=== PATIENT | female | born 1970 | race Caucasian/White ===

== ENCOUNTER 2016-07-11 09:45 | Emergency (ER) | payer BC ==
[2008-09-17 15:14] VITALS: BP 138/64
[~2016-07-11] VITALS: Ht 154.9 cm; Wt 83.6 kg
[~2016-07-11 09:45] MED LIST: ASPIRIN 32325 MG/TAB PO; ASPIRIN 81M81 MG/TA2 PO; ATENOLOL50 MG PO; CLOPIDOGREL; COREG 25MG25 MG/TAB PO; COREG 6.256.25 MG/TA PO; DIOVAN HCT PO; DIOVAN/HCT 12.51 TA1 PO; DIOVAN160 MG PO; GLIMEPIRIDE; IMDUR 60MG60 MG/TAB PO; IMDUR120 MG PO; ISOSORBIDE; JANUMET; KOMBIGLYZE XR 11 TER PO; LEVEMIR SC; LEVEMIR SQ; LEVEMIR100 U/ML SQ; LIPITOR20 MG PO; METFORMIN HCL500 M1 PO; NAPROXEN EC500 MG PO; NITROQUICK0.4 MG SL; NITROSTAT0.4 MG/TAB; NITROSTAT0.4 MG/TAB SL; NORVASC2.5 MG PO; NOVOLOG 100U100 U/M1; PLAVIX 75MG TAB75 MG PO; PRILOSEC 20MG20 MG PO; PROTONIX 40MG T40 MG PO; RANEXA 500MG T500 MG PO; RANEXA PO; RENEXA PO; VYTORIN; XIGDUO PO; ZOCOR 40MG40 MG PO; ZOFRAN 4MG T4 MG/TAB; ZOFRAN 4MG T4 MG/TAB PO; [UNRECOGNIZED DRUG - OTHER]; levemir
[2016-07-11 09:54] VITALS: BP 128/87; TEMP 98.7
[2016-07-11] MEDS ORDERED: VITAMIN D 1001000 IU (10:02)
[2016-07-11 10:45] LABS: INFLUENZA B NEGATIVE
[2016-07-11] MEDS ORDERED: TESSALON PERLE200 MG PO (11:30)
[2016-07-11] MEDS ORDERED: DOXYCYCLINE 10100 MG PO (11:30)
[2016-07-11] MEDS ORDERED: PROAIR HFA0.09 MG/AC IH (11:30)
[2016-07-11 11:40] VITALS: PULSE 85
== END 2016-07-11 11:40 | disposition home or self-care (01) ==
LOC: COL.ER 09:45
PROVIDERS: Nurse Practitioner
DX: J40 Bronchitis, not specified as acute or chronic (principal); F17.210 Nicotine dependence, cigarettes, uncomplicated; E11.9 Type 2 diabetes mellitus without complications; Z79.4 Long term (current) use of insulin; I10 Essential (primary) hypertension; I25.10 Atherosclerotic heart disease of native coronary artery without angina pectoris; Z95.1 Presence of aortocoronary bypass graft; Z95.5 Presence of coronary angioplasty implant and graft

== ENCOUNTER 2016-08-10 19:18 | Emergency (ER) | payer BC ==
[2008-09-17 15:14] VITALS: BP 138/64
[~2016-08-10] VITALS: Ht 154.9 cm; Wt 85.0 kg
[~2016-08-10 19:18] MED LIST changes: +DOXYCYCLINE 10100 MG PO; +PROAIR HFA0.09 MG/AC IH; +TESSALON PERLE200 MG PO; +VITAMIN D 1001000 IU
[2016-08-10 19:22] VITALS: TEMP 97.9
[2016-08-10] MEDS ORDERED: K-DUR 10 MEQ T10 MEQ PO (20:08)
[2016-08-10] MEDS ORDERED: LASIX 40MG TABL40 MG PO (20:08)
[2016-08-10 20:17] VITALS: BP 136/85; PULSE 75
== END 2016-08-10 20:17 | disposition home or self-care (01) ==
LOC: COL.ER 19:18
DX: I97.630 Postprocedural hematoma of a circulatory system organ or structure following a cardiac catheterization (principal); I25.10 Atherosclerotic heart disease of native coronary artery without angina pectoris; I10 Essential (primary) hypertension; Z95.1 Presence of aortocoronary bypass graft; Z95.5 Presence of coronary angioplasty implant and graft; Z87.891 Personal history of nicotine dependence

== ENCOUNTER → 2016-12-02 | Outpatient (CLI) | payer BC ==
[~2016-12-02] MED LIST changes: +K-DUR 10 MEQ T10 MEQ PO; +LASIX 40MG TABL40 MG PO
== END ==
LOC: MC.RAD 07:17
DX: Z12.31 Encounter for screening mammogram for malignant neoplasm of breast (principal)

== ENCOUNTER → 2016-12-22 | Outpatient (CLI) | payer BC | LOC: COL.RAD 12-21 09:45 | DX: K76.89 Other specified diseases of liver (principal) ==

== ENCOUNTER 2017-05-20 13:08 | Emergency (ER) | payer BC ==
[2008-09-17 15:14] VITALS: BP 138/64
[~2017-05-20] VITALS: Ht 154.9 cm; Wt 87.3 kg
[2017-05-20 13:13] VITALS: TEMP 98.7
[2017-05-20 14:01] LABS: ADJUSTED CALCIUM 9.4 mg/dL (8.4-10.2); ALANINE AMINOTRANSFERASE 66 U/L (9-52); ALBUMIN 4.4 gm/dL (3.5-5.0); ALKALINE PHOSPHATASE 91 U/L (50-136); ANION GAP 10 mmol/L (7-16); BASO # 0.1 (0.0-0.2); BASO % 0.7 % (0.0-2.0); BILIRUBIN,TOTAL 0.9 mg/dL (0.0-1.0); BLOOD UREA NITROGEN 21 mg/dL (7-17); CALCIUM 9.7 mg/dL (8.4-10.2); CARBON DIOXIDE 25 mmol/L (22-30); CHLORIDE 105 mmol/L (98-107); CREATININE, serum 0.97 mg/dL (0.52-1.25); EOS # 0.3 (0.0-0.7); EOS % 3.4 % (0-4.0); GLUCOSE 166 mg/dL (74-106); GRAN # 5.4 (1.4-6.5); HEMATOCRIT 49.8 % (37.0-47.0); HEMOGLOBIN 16.6 g/dl (12.5-16.0); LIPASE 141 U/L (23-300); LYMPH % 23.5 % (20.0-51.0); MEAN CELL VOLUME 98 fl (80.0-100.0); MEAN CORPUSCULAR HEMOGLOBIN 33 pg (27.0-31.0); MEAN CORPUSCULAR HGB CONC 33 g/dl (33.0-37.0); MEAN PLATELET VOLUME 11.2 fl (7.4-10.4); MONO # 0.7 (0.1-0.6); MONO % 7.8 % (1.7-9.3); PLATELET COUNT 143 K/mm3 (130-400); POTASSIUM 4.1 mmol/L (3.4-5.0); RED BLOOD COUNT 5.11 M/mm3 (4.10-5.30); SODIUM 140 mmol/L (137-145); TOTAL PROTEIN 7.8 gm/dL (6.4-8.2); WHITE BLOOD COUNT 8.4 K/mm3 (4.8-10.8)
[2017-05-20 14:03] LABS: INR 1.1 (0.8-3.0); PROTHROMBIN TIME 12.1 SECONDS (9.7-12.8)
[2017-05-20 14:05] LABS: PARTIAL THROMBOPLASTIN TIME 35.5 SECONDS (26.0-37.0)
[2017-05-20 14:13] LABS: B-TYPE NATRIURETIC PEPTIDE 360 pg/mL (0-125)
[2017-05-20 14:17] LABS: TROPONIN-I < 0.012 ng/mL (0.000-0.034)
[2017-05-20 16:24] VITALS: BP 136/91; PULSE 66
== END 2017-05-20 16:23 | disposition short-term general hospital (02) ==
LOC: COL.ER 13:08
PROVIDERS: Emergency Medicine
DX: R07.89 Other chest pain (principal); E11.9 Type 2 diabetes mellitus without complications; I10 Essential (primary) hypertension; I25.10 Atherosclerotic heart disease of native coronary artery without angina pectoris; I25.2 Old myocardial infarction; E78.5 Hyperlipidemia, unspecified; Z87.891 Personal history of nicotine dependence; Z95.5 Presence of coronary angioplasty implant and graft; Z79.4 Long term (current) use of insulin; Z79.02 Long term (current) use of antithrombotics/antiplatelets; Z79.82 Long term (current) use of aspirin

== ENCOUNTER → 2017-07-01 | Outpatient (CLI) | payer BC | LOC: COL.RAD 07:39 | DX: K55.1 Chronic vascular disorders of intestine (principal); I74.5 Embolism and thrombosis of iliac artery; K75.81 Nonalcoholic steatohepatitis (NASH); K74.60 Unspecified cirrhosis of liver; I25.10 Atherosclerotic heart disease of native coronary artery without angina pectoris; I73.9 Peripheral vascular disease, unspecified; I70.1 Atherosclerosis of renal artery | CPT/HCPCS: A9585; C8900 ==

== ENCOUNTER 2017-11-11 15:24 | Emergency (ER) | payer BC ==
[2008-09-17 15:14] VITALS: BP 138/64
[~2017-11-11] VITALS: Ht 154.9 cm; Wt 87.7 kg
[2017-11-11 15:26] VITALS: TEMP 97
[2017-11-11 16:05] LABS: BASO # 0.1 (0.0-0.2); BASO % 0.7 % (0.0-2.0); EOS # 0.3 (0.0-0.7); EOS % 2.5 % (0-4.0); GRAN # 7.4 (1.4-6.5); GRAN % 72.6 % (42.2-75.2); HEMATOCRIT 49.4 % (37.0-47.0); HEMOGLOBIN 16.8 g/dl (12.5-16.0); LYMPH # 1.8 (1.2-3.4); LYMPH % 18.1 % (20.0-51.0); MEAN CELL VOLUME 97 fl (80.0-100.0); MEAN CORPUSCULAR HEMOGLOBIN 33 pg (27.0-31.0); MEAN CORPUSCULAR HGB CONC 34 g/dl (33.0-37.0); MEAN PLATELET VOLUME 11.2 fl (7.4-10.4); MONO # 0.6 (0.1-0.6); MONO % 5.6 % (1.7-9.3); PLATELET COUNT 169 K/mm3 (130-400); RED BLOOD COUNT 5.11 M/mm3 (4.10-5.30); REDCELL DISTRIBUTION WIDTH-CV 14.6 % (11.5-14.5)
[2017-11-11 16:15] LABS: ALANINE AMINOTRANSFERASE 45 U/L (9-52); ALKALINE PHOSPHATASE 92 U/L (50-136); ANION GAP 17 mmol/L (7-16); AST,SGOT 56 U/L (15-37); BILIRUBIN,TOTAL 0.8 mg/dL (0.0-1.0); BLOOD UREA NITROGEN 29 mg/dL (7-17); CALCIUM 9.4 mg/dL (8.4-10.2); CARBON DIOXIDE 23 mmol/L (22-30); CHLORIDE 104 mmol/L (98-107); CREATININE, serum 0.89 mg/dL (0.52-1.25); GLUCOSE 226 mg/dL (74-106); MAGNESIUM 1.8 mg/dL (1.6-2.3); PHOSPHOROUS 3.9 mg/dL (2.5-4.5); POTASSIUM 3.8 mmol/L (3.4-5.0); SODIUM 143 mmol/L (137-145); TOTAL PROTEIN 8.1 gm/dL (6.4-8.2)
[2017-11-11 16:28] LABS: TROPONIN-I < 0.012 ng/mL (0.000-0.034)
[2017-11-11] MEDS ORDERED: ANTIVERT 25MG25 MG PO (16:43)
[2017-11-11] MEDS ORDERED: ZOFRAN 4MG T4 MG/TAB PO (16:43)
[2017-11-11] MEDS ORDERED: NORVASC 5MG5 MG/TAB PO (16:44)
[2017-11-11 16:45] LABS: COLLECTION METHOD CLEAN CATCH
[2017-11-11] MEDS ORDERED: JANUVIA 100MG100 MG PO (16:45)
[2017-11-11 16:50] LABS: MUCOUS Present /lpf; PH 5 (5-8); SQUAMOUS EPITHELIAL 0-2 /hpf; URINE APPEARANCE Clear; URINE BACTERIA None Seen /hpf; URINE BILIRUBIN Negative (NEGATIVE); URINE BLOOD 1+ (NEGATIVE); URINE COLOR Yellow; URINE GLUCOSE 3+ (NEGATIVE); URINE KETONE Negative (NEGATIVE); URINE LEUKOCYTE ESTERASE Negative (NEGATIVE); URINE NITRATE Negative (NEGATIVE); URINE PROTEIN(semi-quant) Negative (NEGATIVE); URINE RBC 0-2 /hpf; URINE UROBILINOGEN Negative (NEGATIVE)
[2017-11-11] MEDS ORDERED: VALIUM 2MG T2 MG/TAB PO (19:20)
[2017-11-11] MEDS ORDERED: NITRO-DUR0.1 MG/PAT TD (19:35)
[2017-11-11 20:15] VITALS: BP 142/116; PULSE 75
== END 2017-11-11 20:15 | disposition left against medical advice (07) ==
LOC: COL.ER 15:24
PROVIDERS: Emergency Medicine
DX: R07.9 Chest pain, unspecified (principal); R42 Dizziness and giddiness; I11.0 Hypertensive heart disease with heart failure; I50.9 Heart failure, unspecified; E11.9 Type 2 diabetes mellitus without complications; E78.5 Hyperlipidemia, unspecified; I25.2 Old myocardial infarction; F17.210 Nicotine dependence, cigarettes, uncomplicated; Z95.5 Presence of coronary angioplasty implant and graft; Z95.1 Presence of aortocoronary bypass graft; Z79.82 Long term (current) use of aspirin; Z79.4 Long term (current) use of insulin; Z79.02 Long term (current) use of antithrombotics/antiplatelets

== ENCOUNTER 2017-12-16 10:57 | Emergency (ER) | payer BC ==
[2008-09-17 15:14] VITALS: BP 138/64
[~2017-12-16] VITALS: Ht 157.5 cm; Wt 90.9 kg
[~2017-12-16 10:57] MED LIST changes: +ANTIVERT 25MG25 MG PO; +JANUVIA 100MG100 MG PO; +NITRO-DUR0.1 MG/PAT TD; +NORVASC 5MG5 MG/TAB PO; +VALIUM 2MG T2 MG/TAB PO
[2017-12-16 11:12] VITALS: TEMP 98
[2017-12-16 12:11] LABS: BASO # 0.1 (0.0-0.2); BASO % 0.6 % (0.0-2.0); EOS # 0.2 (0.0-0.7); EOS % 2.4 % (0-4.0); HEMATOCRIT 43.9 % (37.0-47.0); HEMOGLOBIN 14.9 g/dl (12.5-16.0); LYMPH # 1.7 (1.2-3.4); LYMPH % 19.4 % (20.0-51.0); MEAN CELL VOLUME 95 fl (80.0-100.0); MEAN CORPUSCULAR HEMOGLOBIN 32 pg (27.0-31.0); MEAN CORPUSCULAR HGB CONC 34 g/dl (33.0-37.0); MEAN PLATELET VOLUME 10.8 fl (7.4-10.4); MONO # 0.7 (0.1-0.6); MONO % 8.1 % (1.7-9.3); PLATELET COUNT 124 K/mm3 (130-400); RED BLOOD COUNT 4.61 M/mm3 (4.10-5.30); REDCELL DISTRIBUTION WIDTH-CV 14.7 % (11.5-14.5)
[2017-12-16 12:19] LABS: ALANINE AMINOTRANSFERASE 45 U/L (9-52); ALBUMIN 3.7 gm/dL (3.5-5.0); ALKALINE PHOSPHATASE 76 U/L (50-136); ANION GAP 10 mmol/L (7-16); AST,SGOT 56 U/L (15-37); BILIRUBIN,TOTAL 0.8 mg/dL (0.0-1.0); BLOOD UREA NITROGEN 21 mg/dL (7-17); CALCIUM 9.1 mg/dL (8.4-10.2); CARBON DIOXIDE 24 mmol/L (22-30); CHLORIDE 107 mmol/L (98-107); CREATININE, serum 0.75 mg/dL (0.52-1.25); GLUCOSE 93 mg/dL (74-106); POTASSIUM 3.9 mmol/L (3.4-5.0); SODIUM 141 mmol/L (137-145); TOTAL PROTEIN 7.5 gm/dL (6.4-8.2)
[2017-12-16 12:26] LABS: INR 1.1 (0.8-3.0); PROTHROMBIN TIME 12.3 SECONDS (9.7-12.8)
[2017-12-16 12:29] LABS: PARTIAL THROMBOPLASTIN TIME 39.1 SECONDS (26.0-37.0)
[2017-12-16 12:34] LABS: TROPONIN-I < 0.012 ng/mL (0.000-0.034)
[2017-12-16 15:50] VITALS: BP 116/49; PULSE 60
== END 2017-12-16 15:50 | disposition home or self-care (01) ==
LOC: COL.ER 10:57
PROVIDERS: Family Medicine
DX: I35.0 Nonrheumatic aortic (valve) stenosis (principal); I50.9 Heart failure, unspecified; E11.9 Type 2 diabetes mellitus without complications; J44.9 Chronic obstructive pulmonary disease, unspecified; F17.210 Nicotine dependence, cigarettes, uncomplicated; Z79.82 Long term (current) use of aspirin; Z79.4 Long term (current) use of insulin
CPT/HCPCS: J1940

== ENCOUNTER → 2018-07-18 | Outpatient (CLI) | payer BC | LOC: COL.VAS 12:57 | DX: M79.89 Other specified soft tissue disorders (principal) ==

== ENCOUNTER → 2018-09-29 | Outpatient (CLI) | payer BC | LOC: COL.LAB 17:00 | DX: I25.10 Atherosclerotic heart disease of native coronary artery without angina pectoris (principal) ==

== ENCOUNTER → 2018-11-02 | Outpatient (CLI) | payer BC | LOC: COL.RAD 12:18 | DX: K75.81 Nonalcoholic steatohepatitis (NASH) (principal); R14.0 Abdominal distension (gaseous) ==

== ENCOUNTER → 2019-01-18 | Outpatient (CLI) | payer BC | LOC: COL.RAD 06:57 | DX: K75.81 Nonalcoholic steatohepatitis (NASH) (principal) | CPT/HCPCS: Q9967 ==

== ENCOUNTER 2019-05-16 16:15 | Emergency (ER) | payer BC ==
[2008-09-17 15:14] VITALS: BP 138/64
[~2019-05-16] VITALS: Ht 154.9 cm; Wt 81.7 kg
[~2019-05-16 16:15] MED LIST changes: -XIGDUO PO; +XIGDUO10/1000 PO
[2019-05-16 18:32] LABS: HEMATOCRIT 45.8 % (37.0-47.0); HEMOGLOBIN 15.4 g/dl (12.5-16.0); MEAN CELL VOLUME 96 fl (80.0-100.0); MEAN CORPUSCULAR HEMOGLOBIN 32 pg (27.0-31.0); MEAN CORPUSCULAR HGB CONC 34 g/dl (33.0-37.0); MEAN PLATELET VOLUME 10.7 fl (7.4-10.4); PLATELET COUNT 95 K/mm3 (130-400); RED BLOOD COUNT 4.78 M/mm3 (4.10-5.30); REDCELL DISTRIBUTION WIDTH-CV 16.6 % (11.5-14.5)
[2019-05-16 18:49] LABS: ALBUMIN 3.8 gm/dL (3.5-5.0); BILIRUBIN,TOTAL 0.7 mg/dL (0.0-1.0); C-REACTIVE PROTEIN 3.3 mg/dL (0.0-0.9); CALCIUM 9.4 mg/dL (8.4-10.2); CREATININE, serum 0.91 (0.52-1.25); TOTAL PROTEIN 7.4 gm/dL (6.4-8.2)
[2019-05-16 18:58] LABS: TROPONIN-I 0.016 ng/mL (0.000-0.035)
[2019-05-16 18:59] LABS: ERYTHROCYTE SEDIMENTATION RATE 6 mm/hr (0-30)
[2019-05-16 19:44] LABS: BAND 6 % (0-10); EOSINOPHIL 1 % (0-4); LYMPHOCYTE 8 % (20.0-51.0); NEUTROPHILS 77 % (42.0-75.2); PLATELET ESTIMATE NORMAL (NORMAL); TOXIC GRANULATION PRESENT
[2019-05-16 19:46] LABS: ANISOCYTOSIS 1+
[2019-05-17] MEDS ORDERED: DOXYCYCLINE 10100 MG PO (01:38)
[2019-05-17] MEDS ORDERED: PERCOCET 325 MG1 TA2 PO (01:38)
[2019-05-17] MEDS ORDERED: AMOXICILLIN 50500 MG PO (01:38)
[2019-05-17 02:50] VITALS: BP 118/65; PULSE 66; TEMP 98.4
== END 2019-05-17 02:50 | disposition home or self-care (01) ==
LOC: COL.ER 16:15
PROVIDERS: Nurse Practitioner
DX: M71.161 Other infective bursitis, right knee (principal); R91.8 Other nonspecific abnormal finding of lung field; E11.9 Type 2 diabetes mellitus without complications; I10 Essential (primary) hypertension; I25.10 Atherosclerotic heart disease of native coronary artery without angina pectoris; J44.9 Chronic obstructive pulmonary disease, unspecified; F17.210 Nicotine dependence, cigarettes, uncomplicated; Z88.2 Allergy status to sulfonamides; Z88.1 Allergy status to other antibiotic agents; Z95.9 Presence of cardiac and vascular implant and graft, unspecified
CPT/HCPCS: J1170; J2543; J3370; J7050; Q9967

== ENCOUNTER 2019-05-20 12:44 | Observation (INO) | payer BC ==
[~2019-05-20] VITALS: Ht 154.9 cm; Wt 85.0 kg
[~2019-05-20 12:44] MED LIST changes: +AMOXICILLIN 50500 MG PO; +PERCOCET 325 MG1 TA2 PO
[2019-05-20] MEDS ORDERED: AMOXICILLIN 50500 MG PO (12:53)
[2019-05-20] MEDS ORDERED: DOXYCYCLINE HY100 MG PO (12:54)
[2019-05-20 13:36] LABS: HEMATOCRIT 45.9 % (37.0-47.0); HEMOGLOBIN 14.9 g/dl (12.5-16.0); MEAN CELL VOLUME 97 fl (80.0-100.0); MEAN CORPUSCULAR HEMOGLOBIN 31 pg (27.0-31.0); MEAN CORPUSCULAR HGB CONC 33 g/dl (33.0-37.0); MEAN PLATELET VOLUME 10.7 fl (7.4-10.4); PLATELET COUNT 72 K/mm3 (130-400); RED BLOOD COUNT 4.74 M/mm3 (4.10-5.30); REDCELL DISTRIBUTION WIDTH-CV 16.7 % (11.5-14.5)
[2019-05-20 13:52] LABS: ALBUMIN 3.5 gm/dL (3.5-5.0); BAND 21 % (0-10); BILIRUBIN,TOTAL 1.1 mg/dL (0.0-1.0); C-REACTIVE PROTEIN 5.5 mg/dL (0.0-0.9); CALCIUM 8.8 mg/dL (8.4-10.2); EOSINOPHIL 9 % (0-4); LYMPHOCYTE 10 % (20.0-51.0); NEUTROPHILS 55 % (42.0-75.2); TOTAL PROTEIN 6.7 gm/dL (6.4-8.2)
[2019-05-20 13:53] LABS: PLATELET ESTIMATE DECREASED (NORMAL)
[2019-05-20 13:59] LABS: ERYTHROCYTE SEDIMENTATION RATE 1 mm/hr (0-30)
[2019-05-20 15:12] LABS: COLLECTION METHOD CLEAN CATCH
[2019-05-20 15:29] LABS: PH 6 (5-8); SQUAMOUS EPITHELIAL 0-2 /hpf; URINE APPEARANCE Clear; URINE BACTERIA None Seen /hpf; URINE BILIRUBIN Negative (NEGATIVE); URINE BLOOD 1+ (NEGATIVE); URINE COLOR Yellow; URINE GLUCOSE 3+ (NEGATIVE); URINE KETONE Negative (NEGATIVE); URINE LEUKOCYTE ESTERASE Negative (NEGATIVE); URINE NITRATE Negative (NEGATIVE); URINE PROTEIN(semi-quant) Negative (NEGATIVE); URINE UROBILINOGEN Negative (NEGATIVE)
[2019-05-20] MEDS ORDERED: TRESIBA FL200 UNIT/1 (16:41)
[2019-05-20] MEDS ORDERED: DEMADEX 20MG20 M1 PO (16:47)
[2019-05-20] MEDS ORDERED: PROTONIX20 MG PO (16:48)
[2019-05-20] MEDS ORDERED: XIFAXAN550 MG PO (16:49)
[2019-05-20 17:11] VITALS: BP 116/50; PULSE 65; TEMP 98.6
[2019-05-20] MEDS ORDERED: RT ADVAIR 528 DISKUS IH (18:04)
[2019-05-20] MEDS ORDERED: RT SPIRIVA18 MCG IH (18:05)
[2019-05-20] MEDS ORDERED: ALBUTEROL SULFAT3 M3 IH (18:08)
--- NOTE | 2019-05-20 19:36 | NUR ---
Patient's IV stopped working this afternoon. Two attempts were made to start a new IV without success. Dr. Durán contacted who stated to leave IV out and take patient off of telemetry. Dr. Durán ordered Levaquin to be started. Will start tomorrow morning. Per Dr. Durán, patient should be watched closely for a reaction due to other antibiotic allergies. This information was relayed during shift report.
--- NOTE | 2019-05-20 19:42 | NUR ---
Patient admission completed including initial, 5 page and suicide assessment. Patient password given. Med rec completed. Patient continues to have significant pain to bilateral knees. Attempting to control pain with Percocet. Patient has Morphine ordered but states she won't take it because it makes her "feel like she's having a heart attack." Patient and brother oriented to room and unit. They both express no further questions at this time.
[2019-05-20 19:59] VITALS: BP 96/47; PULSE 61; TEMP 99.2
--- NOTE | 2019-05-20 21:20 | NUR ---
Pt resting in bed. HOB elevated. No acute distress noted. Pts family has left for the night. Respirations even and unlabored. Lungs coarse. O2@2L via NC. Abdomen is distended. BS+. Pt denies nausea. Skin is yellowish. Stage I pressure ulcer noted to coccyx. Mepilex in place. Pt voiding, but brief in place. Bilateral knees are reddened and painful. Edema noted to BLE. Legs elevated. Ice applied knees. Pt reports pain in bilateral knees but she states "its tolerable if I don't move". Pt ate approximately 50% of dinner meal, stating it was to difficult to chew. Pt denies needs at this time.
--- NOTE | 2019-05-20 22:21 | NUR ---
Pt rating pain 6/10 in bilateral knees. She was unable to tolerate the Ice therapy. PRN pain medications given.
[2019-05-21] VITALS (7 sets, daily range): BP systolic 91–125; BP diastolic 40–64; PULSE 50–60; TEMP 97.5–98.5
--- NOTE | 2019-05-21 06:25 | NUR ---
Dr. Conrad at bedside. Pt c/o pain 5/10 in bilateral knees- aching. PRN pain meds given. Pt ambulated to bathroom with 1 assist and walker x1. Well tolerated. Pt denies needs this morning.
--- NOTE | 2019-05-21 06:26 | NUR ---
Vancomycin Initial Dosing Pharmacy Note Ordering provider: Caroline Salinas W., MD Indication/duration: Septic Bursitis Relevant comorbidities: DM LABS: Est CrCl of 55 mL/min Recommendation: 1.25 g IV every 12 hrs, usual course 10-14 days Loading dose: 1.5 grams Maintenance dose: 1.25 grams every 12 hours Trough goal: 15-20 ug/mL
[2019-05-21 06:28] LABS: HEMATOCRIT 38.9 % (37.0-47.0); MEAN CELL VOLUME 99 fl (80.0-100.0); MEAN CORPUSCULAR HEMOGLOBIN 32 pg (27.0-31.0); MEAN CORPUSCULAR HGB CONC 33 g/dl (33.0-37.0); MEAN PLATELET VOLUME 11.5 fl (7.4-10.4); PLATELET COUNT 66 K/mm3 (130-400); RED BLOOD COUNT 3.92 M/mm3 (4.10-5.30); REDCELL DISTRIBUTION WIDTH-CV 16.2 % (11.5-14.5)
[2019-05-21 06:31] LABS: BILIRUBIN,TOTAL 0.6 mg/dL (0.0-1.0); CALCIUM 8.2 mg/dL (8.4-10.2); CREATININE, serum 0.92 (0.52-1.25); POTASSIUM 4.3 mmol/L (3.4-5.0); TOTAL PROTEIN 5.9 gm/dL (6.4-8.2)
[2019-05-21 06:35] LABS: HEMOGLOBIN 12.7 g/dl (12.5-16.0)
[2019-05-21 07:19] LABS: EOSINOPHIL 5 % (0-4); LYMPHOCYTE 4 % (20.0-51.0); METAMYELOCYTE 1 % (0-0); PLATELET ESTIMATE DECREASED (NORMAL)
[2019-05-21 07:20] LABS: BAND 22 % (0-10); NEUTROPHILS 63 % (42.0-75.2)
--- NOTE | 2019-05-21 19:34 | NUR ---
Resting in bed. Assessment complete. Wheezing with expiration throughout all lungs degroot. Denies shortness of breath at this time. Heart souds normal. Bowels active x4. Pulses present throughout. RLE edema +3, LLE edema +2. Bilateral knees erythema present. Coccyx erythema/excoriation-covered with mepalex. Reports 8/10 knee/back pain at this time. Provided with PRN percocet. Left wrist INT without complications. Denies other needs at this time. Call light in reach. Refused nitro patch. Call light in reach.
--- NOTE | 2019-05-21 22:03 | NUR ---
Reports 10/10 leg pain. Patient visibly tearful. Provided with PRN morphine for breakthrough pain. Patient also reports hemoptysis at this time. x1 episode. Will closely monitor.
--- NOTE | 2019-05-21 23:51 | NUR ---
Resting in bed. Denies needs. call light in reach.
--- NOTE | 2019-05-22 01:20 | NUR ---
Provided patient with PRN percocet for 6/10 bilateral knee pain.
--- NOTE | 2019-05-22 04:01 | NUR ---
Reports 5/10 pain at this time. Up to restroom and returned to bed. X1 episode of bloody sputum. Denies other needs at this time. Call light in reach.
[2019-05-22 04:02] VITALS: BP 135/47; PULSE 71; TEMP 98.1
--- NOTE | 2019-05-22 04:20 | NUR ---
Patient requested PRN morphine for increased pain after ambulation. Provided to patient at this time. Call light in reach. Will monitor.
--- NOTE | 2019-05-22 05:40 | NUR ---
Reports 6/10 leg pain. Requested PRN percocet. Provided to patient. Denies other needs at this time. Call light in reach.
--- NOTE | 2019-05-22 06:33 | NUR ---
Patient required x3 doses of percocet and x2 doses of morphine throughout night for pain control. Otherwise uneventful night. INT left wrist leaking this AM. Restarted on right forearm.
--- NOTE | 2019-05-22 06:50 | NUR ---
awake resting in bed, bedside shift report received from ANNELIESE Morley
--- NOTE | 2019-05-22 06:59 | NUR ---
Report given to ANNELIESE Silva
[2019-05-22 07:08] LABS: HEMATOCRIT 40.3 % (37.0-47.0); HEMOGLOBIN 13.1 g/dl (12.5-16.0); MEAN CELL VOLUME 98 fl (80.0-100.0); MEAN CORPUSCULAR HEMOGLOBIN 32 pg (27.0-31.0); MEAN CORPUSCULAR HGB CONC 33 g/dl (33.0-37.0); MEAN PLATELET VOLUME 11.6 fl (7.4-10.4); PLATELET COUNT 75 K/mm3 (130-400); RED BLOOD COUNT 4.11 M/mm3 (4.10-5.30); REDCELL DISTRIBUTION WIDTH-CV 15.9 % (11.5-14.5)
[2019-05-22 07:27] VITALS: BP 139/47; PULSE 57; TEMP 97.5
[2019-05-22 07:28] LABS: CREATININE, serum 0.85 (0.52-1.25)
[2019-05-22 08:25] LABS: BAND 36 % (0-10); EOSINOPHIL 3 % (0-4); LYMPHOCYTE 5 % (20.0-51.0); NEUTROPHILS 51 % (42.0-75.2)
[2019-05-22 08:26] LABS: PLATELET ESTIMATE DECREASED (NORMAL)
--- NOTE | 2019-05-22 08:41 | NUR ---
up in chair and had breakfast, full assessment completed, see interventions for further info, denies needs at this time
--- NOTE | 2019-05-22 10:13 | NUR ---
remains up in chair and is talking on the phone, denies needs
[2019-05-22 12:10] VITALS: BP 135/59; PULSE 63; TEMP 97.7
--- NOTE | 2019-05-22 12:28 | NUR ---
Dr Prakash and care team in to see patient, will plan discharge later today
[2019-05-22] MEDS ORDERED: PREDNISONE10 MG PO (12:39)
[2019-05-22] MEDS ORDERED: PERCOCET 325 MG1 TA2 PO (13:18)
--- NOTE | 2019-05-22 14:15 | NUR ---
[employer] met with patient to discuss discharge planning. Patient lives in [place] and states she has a friend that lives in her basement. Patient sees Dr. Fox for primary care and obtains medications from [facility] with no difficulty. Patient has wheelchair, walker, cane, stool riser, and shower chair that she uses as needed at home. Patient states the walker has been loaned to her by her employer's so she will need to get her own walker at some point. Patient states she has [employer] which designates her brother Casey. Patient states she has copies at home. Patient reports she is employed at [employer] in [place] and is eager to get home. TREE met again with patient to present DME choice form. Patient selected [facility] and provided signature. TREE placed choice form in chart. TREE collaborated with ROSIE Matt to complete order. TREE faxed order, PT Notes, Face Sheet, and H&P to [facility]. TREE to continue to follow.
--- NOTE | 2019-05-22 14:23 | NUR ---
Manager Valuation was notified by Shira COY that patient desires to go home. SW met with patient who advised she has a walker at home that she can use until [facility] has a walker ready for her. Patient states the walker she currently has is from her employer's and she can use it until she has a walker of her own. Patient states she would like [facility] to call her when walker is ready and she will pick it up. SW contacted Enma at [facility] who advised she would directly contact patient at number patient provided to let her know when walker is ready. Patient to discharge home this afternoon and use current walker that has been loaned to her until [facility] has walker ready for her. No additional concerns at this time.
--- NOTE | 2019-05-22 14:30 | NUR ---
discharged per WC
== END 2019-05-22 14:30 | disposition home or self-care (01) ==
LOC: COL.ER 12:44 → SURG 15:18
PROVIDERS: Emergency Medicine; Physician Assistant; ADMIT Student in an Organized Health Care Education/Training Program
DX: M70.42 Prepatellar bursitis, left knee (principal); D72.825 Bandemia; I25.10 Atherosclerotic heart disease of native coronary artery without angina pectoris; I10 Essential (primary) hypertension; E78.5 Hyperlipidemia, unspecified; E11.9 Type 2 diabetes mellitus without complications; J45.909 Unspecified asthma, uncomplicated; D69.6 Thrombocytopenia, unspecified; F17.210 Nicotine dependence, cigarettes, uncomplicated; I25.2 Old myocardial infarction; Z95.1 Presence of aortocoronary bypass graft; Z95.5 Presence of coronary angioplasty implant and graft; Z95.2 Presence of prosthetic heart valve; Z79.02 Long term (current) use of antithrombotics/antiplatelets; Z79.4 Long term (current) use of insulin; Z79.82 Long term (current) use of aspirin; Z79.51 Long term (current) use of inhaled steroids; Z88.1 Allergy status to other antibiotic agents; Z88.2 Allergy status to sulfonamides
CPT/HCPCS: 99231-AI; G0378; J1170; J1815; J2270; J2930; J3370; J7030; J7050

== ENCOUNTER 2019-05-23 21:44 | Emergency (ER) | payer BC ==
[2008-09-17 15:14] VITALS: BP 138/64
[~2019-05-23] VITALS: Ht 157.5 cm; Wt 82.7 kg
[~2019-05-23 21:44] MED LIST changes: +ALBUTEROL SULFAT3 M3 IH; +DEMADEX 20MG20 M1 PO; +DOXYCYCLINE HY100 MG PO; +PREDNISONE10 MG PO; +PROTONIX20 MG PO; +RT ADVAIR 528 DISKUS IH; +RT SPIRIVA18 MCG IH; +TRESIBA FL200 UNIT/1; +XIFAXAN550 MG PO
[2019-05-23 21:57] LABS: MEAN CELL VOLUME 96 fl (80.0-100.0); MEAN CORPUSCULAR HEMOGLOBIN 32 pg (27.0-31.0); MEAN CORPUSCULAR HGB CONC 33 g/dl (33.0-37.0); MEAN PLATELET VOLUME 10.5 fl (7.4-10.4); PLATELET COUNT 113 K/mm3 (130-400); RED BLOOD COUNT 4.78 M/mm3 (4.10-5.30); REDCELL DISTRIBUTION WIDTH-CV 16.8 % (11.5-14.5)
[2019-05-23 22:02] LABS: HEMOGLOBIN 15.3 g/dl (12.5-16.0)
[2019-05-23 22:06] LABS: BILIRUBIN,TOTAL 1.2 mg/dL (0.0-1.0); CALCIUM 10.3 mg/dL (8.4-10.2); CREATININE, serum 0.78 (0.52-1.25); POTASSIUM 3.8 mmol/L (3.4-5.0); TOTAL PROTEIN 7.5 gm/dL (6.4-8.2)
[2019-05-23 22:11] LABS: INR 1.3 (0.8-3.0); PROTHROMBIN TIME 15.3 SECONDS (9.7-12.8)
[2019-05-23 22:17] LABS: TROPONIN-I 0.017 ng/mL (0.000-0.035)
[2019-05-23 22:28] LABS: ANISOCYTOSIS 1+; EOSINOPHIL 4 % (0-4); LYMPHOCYTE 3 % (20.0-51.0); METAMYELOCYTE 2 % (0-0); MYELOCYTE 2 % (0-0); NEUTROPHILS 83 % (42.0-75.2); PLATELET ESTIMATE DECREASED (NORMAL)
[2019-05-23 23:30] VITALS: BP 117/70; PULSE 77; TEMP 97.2
== END 2019-05-23 23:40 | disposition short-term general hospital (02) ==
LOC: COL.ER 21:44
PROVIDERS: Emergency Medicine
DX: I62.9 Nontraumatic intracranial hemorrhage, unspecified (principal); I25.10 Atherosclerotic heart disease of native coronary artery without angina pectoris; E11.9 Type 2 diabetes mellitus without complications; I10 Essential (primary) hypertension; E78.5 Hyperlipidemia, unspecified; F17.210 Nicotine dependence, cigarettes, uncomplicated; Z79.82 Long term (current) use of aspirin; Z95.1 Presence of aortocoronary bypass graft; Z70.2 Counseling related to sexual behavior and orientation of third party; Z79.51 Long term (current) use of inhaled steroids; Z79.4 Long term (current) use of insulin
CPT/HCPCS: J0692; J0780; J1100; J1953; J7030; J7050; P9035